=== PATIENT | male | born 1970 | race Caucasian/White ===

== ENCOUNTER 2025-09-02 14:13 | Outpatient (CLI) | payer BC ==
[2025-09-02 14:33] LABS: MEAN PLATELET VOLUME 7.5 FL (7.4-10.4); RED CELL DISTRIBUTION WIDTH 13.4 % (11.5-14.5)
== END 2025-09-02 23:59 | disposition home or self-care (01) ==
LOC: RAD 14:13
PROVIDERS: ATTEND Nurse Practitioner Family
DX: D72.829 Elevated white blood cell count, unspecified (principal)
CPT/HCPCS: 85025